=== PATIENT | male | born 1970 | race Caucasian/White ===

== ENCOUNTER 2021-11-11 23:28 | Emergency (ER) | payer MEDICARE, OTHER ==
[~2021-11-11] VITALS: Ht 175.3 cm; Wt 124.7 kg
--- NOTE | 2021-11-11 23:51 | NUR ---
BIBS WITH MULTIPLE C/O SOB, SCABIES AND BILATERAL LEG SWELLING [id number]. PATIENT ALERT AND ORIENTED X3. AMBULATORY WITH NON LABORED BREATHING BUT BROUGHT IN BY STRETCHER.
--- NOTE | 2021-11-12 00:11 | NUR ---
Patient does not wish to proceed with medical care recommended by Dr. Estrada. Patient given information related to possible complications, up to and including , which could occur as a result of leaving the hospital at this time. Patient verbalizes understanding of risks involved due to leaving against medical advice. Patient has signed AMA form.
[2021-11-12 00:12] VITALS: BP 145/81
== END 2021-11-12 00:12 | disposition home or self-care (01) ==
LOC: ER 23:32
DX: R06.00 Dyspnea, unspecified (principal); R60.0 Localized edema